=== PATIENT | male | born 1995 | race Two or more races ===

== ENCOUNTER 2016-07-07 19:52 | Emergency (ER) | payer OTHER ==
[2016-07-07 20:03] VITALS: BP 138/70; PULSE 93; RESP 14; TEMP 98.4; O2SAT 96
[2016-07-07] MEDS ORDERED: IBUPROFEN 600 MG TAB PO ONE (20:23)
[2016-07-07] MEDS ORDERED: IBUPROFEN 200 MG TAB PO ONE ×2 (20:23→20:25)
--- NOTE | 2016-07-07 20:42 | EDPHY ---
H & P Stated Complaint: back pain Time Seen by Provider: 07/07/16 20:19 HPI/ROS: CHIEF COMPLAINT: Low back pain HISTORY OF PRESENT ILLNESS: The patient is a 20-year-old man who comes to the emergency department complaining of right-sided low back pain. He states that it began hurting at the gym 1 week ago after working out and running racing his friend. It improved after 3 days of rest but then after going to the gym again today it began hurting again. Particularly when he bends over. No radiculopathy, no weakness or numbness, no bowel or bladder abnormalities. No trauma. REVIEW OF SYSTEMS: Constitutional: denies: chills, fever, recent illness, recent injury EENTM: denies: blurred vision, double vision, nose congestion Respiratory: denies: cough, shortness of breath Cardiac: denies: chest pain, irregular heart rate, lightheadedness, palpitations Gastrointestinal/Abdominal: denies: abdominal pain, diarrhea, nausea, vomiting, blood streaked stools Genitourinary: denies: dysuria, frequency, hematuria, pain Musculoskeletal: See HPI Skin: denies: lesions, rash, jaundice, bruising Neurological: denies: headache, numbness, paresthesia, tingling, dizziness, weakness Hematologic/Lymphatic: denies: blood clots, easy bleeding, easy bruising Immunologic/allergic: denies: HIV/AIDS, transplant EXAM: GENERAL: Well-appearing, well-nourished and in no acute distress. HEAD: Atraumatic, normocephalic. EYES: Pupils equal round and reactive to light, extraocular movements intact, sclera anicteric, conjunctiva are normal. ENT: TMs normal, nares patent, oropharynx clear without exudates. Moist mucous membranes. NECK: Normal range of motion, supple without lymphadenopathy or JVD. LUNGS: Breath sounds clear to auscultation bilaterally and equal. No wheezes rales or rhonchi. HEART: Regular rate and rhythm without murmurs, rubs or gallops. ABDOMEN: Soft, nontender, normoactive bowel sounds. No guarding, no rebound. No masses appreciated. BACK: Right lower muscular pain, improves with massage. No sciatica EXTREMITIES: Normal range of motion, no pitting or edema. No clubbing or cyanosis. NEUROLOGICAL: Cranial nerves II through XII grossly intact. Normal speech, normal gait. 5/5 strength, normal movement in all extremities, normal sensation PSYCH: Normal mood, normal affect. SKIN: Warm, dry, normal turgor, no visible rashes or lesions. Source: Patient Exam Limitations: No limitations - Personal History Current Tetanus/Diphtheria Vaccine: Yes - Medical/Surgical History Hx Asthma: No Hx Chronic Respiratory Disease: No Hx Diabetes: No Hx Cardiac Disease: No Hx Renal Disease: No Hx Cirrhosis: No Hx Alcoholism: No Hx HIV/AIDS: No Hx Splenectomy or Spleen Trauma: No Other PMH: denies - Family History Significant Family History: No pertinent family hx - Social History Smoking Status: Never smoked Alcohol Use: Sober Drug Use: None Constitutional: Initial Vital Signs Temperature (C) 36.9 C 07/07/16 20:00 Heart Rate 93 07/07/16 20:00 Respiratory Rate 14 07/07/16 20:00 Blood Pressure 138/70 H 07/07/16 20:00 O2 Sat (%) 96 07/07/16 20:00 O2 Delivery Mode Room Air Allergies/Adverse Reactions: No Known Allergies Allergy (Unverified 04/13/16 17:32) Home Medications: Medication Instructions Recorded NK [No Known Home Meds] 07/07/16 Medical Decision Making ED Course/Re-evaluation: The patient's symptoms are consistent with muscle strain. I will treat him with ibuprofen and follow up in a few days. Do not feel that imaging is necessary and the patient agrees. He does not have any signs of spine or spinal cord injury. Differential Diagnosis: Partial list of the Differential diagnosis considered include but were not limited to; muscle strain, degenerative disc disease, and although unlikely based on the history and physical exam, I also considered spinal cord injury, cauda equina, radiculopathy, infection. I discussed these differential diagnoses and the plan with the patient as well as the usual and expected course. The patient understands that the diagnosis is provisional and that in medicine we are not always correct and that further workup is often warranted. Usual and customary warnings were given. All of the patient's questions were answered. The patient was instructed to return to the emergency department should the symptoms at all worsen or return, otherwise to followup with the physician as we discussed. - Data Points Medications Given: Discontinued Medications Ibuprofen (Motrin) 800 mg PO EDNOW ONE Stop: 07/07/16 20:26 Last Admin: 07/07/16 20:26 Dose: 800 mg Departure - Departure Disposition: Home, Routine, Self-Care Clinical Impression: Low back strain Qualifiers: Encounter type: initial encounter Qualified Code(s): S39.012A - Strain of muscle, fascia and tendon of lower back, initial encounter Condition: Fair Instructions: Low Back Strain (ED) Additional Instructions: Take ibuprofen 800 mg every 8 hours for 3 days. Rest and stretch as discussed. Referrals: Dottie Higuera MD [Medical Doctor] - As per Instructions
== END 2016-07-07 20:51 | disposition home or self-care (01) ==
DX: S39.012A Strain of muscle, fascia and tendon of lower back, initial encounter (principal); X58.XXXA Exposure to other specified factors, initial encounter; Y92.39 Other specified sports and athletic area as the place of occurrence of the external cause; Y93.43 Activity, gymnastics

== ENCOUNTER 2016-09-05 14:30 | Emergency (ER) | payer OTHER ==
[2016-09-05 14:45] VITALS: RESP 16
[2016-09-05] MEDS ORDERED: IBUPROFEN 600 MG TAB PO ONE (15:27)
[2016-09-05] MEDS ORDERED: CYCLOBENZAPRINE 10 MG TAB PO ONE (15:27)
--- NOTE | 2016-09-05 15:28 | EDPHY ---
H & P Stated Complaint: lower back pain started 09/04 while lying down no trauma-had similar pain HPI/ROS: CHIEF COMPLAINT: Low back pain HISTORY OF PRESENT ILLNESS: Patient complains of sudden onset of low back pain that started last night when he stood up. This is in the lumbar region, primarily right of midline. Some moderate amount of pain. Improved at rest. Radiates into the right buttock only. No saddle anesthesia. No incontinence of bowel or bladder. No retention of bowel or bladder. No motor or sensory changes of either leg. The pain is sometimes severe when he stands up removed. He has not attempted any medications for this. He has a history of this in the past that resolved with [id number] medications. He did not follow up for this. PRIOR ORTHO INJURIES: Previous back pain ESTABLISHED ORTHOPEDIST: None REVIEW OF SYSTEMS: Ten systems reviewed and are negative unless otherwise noted in the HPI EXAMINATION General Appearance: Alert, no distress Cardiovascular: Pulses normal throughout. Symmetric radial and DP pulses are 2 +. Brisk cap refill Back: Normal appearance. Neck no midline tenderness of the cervical thoracic spine. Mild tenderness of the lumbar vertebrae. No step-off, crepitus or deformity. There is tenderness in the right lumbar musculature. Neurological: GCS 15. A&O, sensory symmetric, strength symmetric. No pronator drift. No dysmetria. Patellar reflexes are symmetric at 2+. Skin: Warm and dry, no rash. No petechiae or purpura Extremities: Nontender, no pedal edema Psychiatric: Mood and affect normal DIFFERENTIAL DIAGNOSES: Including but not limited to acute myofascial strain, acute lumbar back pain, lumbar radiculopathy, spondylolisthesis, lumbar fracture MDM: 3:25 p.m. Acute low back pain with mild right radicular pain to the buttock only. No evidence of acute cord compression by history examination. Lumbar x-ray has been ordered. Medications ordered. 4:10 p.m. Lumbar x-ray is read as normal. No acute findings. I have re-examined the patient. He is still neuro intact. Acute low back strain with mild right-sided sciatica. No evidence of acute cord compression. I will treat him with symptomatic medications. He is to rest but continue light activity. Follow up with Neurosurgery and primary care physician. ED Precautions: Worsening pain, lower extremity weakness, numbness or tingling. Saddle anesthesia. Incontinence of bowel or bladder. Retention of bowel or bladder. SUPERVISION: This patient was independently evaluated without direct examination by the attending physician. Case was discussed with attending physician. Source: Patient Exam Limitations: No limitations - Personal History Current Tetanus/Diphtheria Vaccine: Unsure Current Tetanus Diphtheria and Acellular Pertussis (TDAP): Unsure - Medical/Surgical History Hx Asthma: No Hx Chronic Respiratory Disease: No Hx Diabetes: No Hx Cardiac Disease: No Hx Renal Disease: No Hx Cirrhosis: No Hx Alcoholism: No Hx HIV/AIDS: No Hx Splenectomy or Spleen Trauma: No Other PMH: denies - Social History Smoking Status: Never smoked Constitutional: Initial Vital Signs Temperature (C) 97.5 F 09/05/16 14:43 Heart Rate 89 09/05/16 14:43 Respiratory Rate 16 09/05/16 14:43 Blood Pressure 146/70 H 09/05/16 14:43 O2 Sat (%) 96 09/05/16 14:43 O2 Delivery Mode Room Air Allergies/Adverse Reactions: No Known Allergies Allergy (Unverified 04/13/16 17:32) Home Medications: Medication Instructions Recorded Acetaminophen/Codeine 300/30Mg 1 each PO Q6 PRN #15 tab 09/05/16 [Tylenol #3 (*)] Cyclobenzaprine [Flexeril 10 MG 10 mg PO TID PRN #15 tab 09/05/16 (*)] Medical Decision Making - Diagnostics Imaging Results: Imaging Impressions Lumbar Spine X-Ray 09/05/16 15:27 Impression: Normal. No explanation for pain. - Data Points Medications Given: Discontinued Medications Cyclobenzaprine HCl (Flexeril) 10 mg PO EDNOW ONE Stop: 09/05/16 15:28 Last Admin: 09/05/16 15:47 Dose: 10 mg Ibuprofen (Motrin) 600 mg PO EDNOW ONE Stop: 09/05/16 15:28 Last Admin: 09/05/16 15:47 Dose: 600 mg Departure - Departure Disposition: Home, Routine, Self-Care Clinical Impression: Lumbar radicular pain Acute low back pain Qualifiers: Back pain laterality: right Sciatica presence: with sciatica Sciatica laterality: sciatica of right side Qualified Code(s): M54.41 - Lumbago with sciatica, right side Condition: Good Instructions: Lumbar Radiculopathy (ED), Lower Back Exercises (ED) Additional Instructions: Medications as discussed. Follow up with Neurosurgery or primary care physician. Return to ER for any worsening symptoms, saddle anesthesia, weakness of lower extremities, incontinence, or increasing pain ED Precautions: Worsening pain, lower extremity weakness, numbness or tingling. Saddle anesthesia. Incontinence of bowel or bladder. Retention of bowel or bladder. Referrals: NONE *PRIMARY CARE P,. [Primary Care Provider] - As per Instructions Vu Lynch MD [Medical Doctor] - As per Instructions Stand Alone Forms: School Excuse Prescriptions: Acetaminophen/Codeine 300/30Mg [Tylenol #3 (*)] 1 each PO Q6 PRN #15 tab PRN Reason: Pain, Mild Cyclobenzaprine [Flexeril 10 MG (*)] 10 mg PO TID PRN #15 tab PRN Reason: Spasms
[2016-09-05 16:35] VITALS: BP 132/69; PULSE 79; TEMP 98.4; O2SAT 95
== END 2016-09-05 16:32 | disposition home or self-care (01) ==
DX: M54.41 Lumbago with sciatica, right side (principal)

== ENCOUNTER 2017-03-20 19:32 | Emergency (ER) | payer OTHER ==
[2017-03-20 19:37] VITALS: RESP 16; TEMP 98.2
[2017-03-20] MEDS ORDERED: LET GEL TOPICAL 1 EA SYR TP ONE ×2 (19:50→19:51)
[2017-03-20] MEDS ORDERED: HYDROCODONE/APAP 5/325 TAB PO ONE (19:51)
[2017-03-20] MEDS ORDERED: IBUPROFEN 600 MG TAB PO ONE (19:51)
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
[2017-03-20 20:26] VITALS: BP 130/88; PULSE 75; O2SAT 96
== END 2017-03-20 20:25 | disposition home or self-care (01) ==
DX: S80.212A Abrasion, left knee, initial encounter (principal); S80.211A Abrasion, right knee, initial encounter; V28.2XXA Unspecified motorcycle rider injured in noncollision transport accident in nontraffic accident, initial encounter; Y92.410 Unspecified street and highway as the place of occurrence of the external cause

== ENCOUNTER 2017-10-09 18:42 | Emergency (ER) | payer OTHER ==
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
[2017-10-09 21:15] VITALS: BP 125/69
== END 2017-10-18 16:16 | disposition home or self-care (01) ==
PROC: 0HQGXZZ Repair Left Hand Skin, External Approach (ICD-10-PCS; principal; 2017-10-09)
DX: S61.312A Laceration without foreign body of right middle finger with damage to nail, initial encounter (principal); W26.8XXA Contact with other sharp object(s), not elsewhere classified, initial encounter; Y99.8 Other external cause status; Y93.89 Activity, other specified